=== PATIENT | male | born 1985 | race Caucasian/White ===

== ENCOUNTER 2019-09-05 18:45 | Inpatient (IN) ==
[2019-09-05 19:48] LABS: Hematocrit 48.4 % (37.5-50.1); Hemoglobin 17.3 g/dL (12.9-16.9); Mean Corpuscular HGB Conc 35.7 g/dL (31.6-35.5); Mean Corpuscular Hemoglobin 29.1 pg (28.0-33.3); Mean Corpuscular Volume 81.5 fL (83.0-100.0); Mean Platelet Volume 9.5 fL (9.4-12.4); Platelet Count 246 K/mcL (140-400); Red Blood Count 5.94 M/mcL (4.19-5.50); Red Cell Distribution Width 13.7 % (11.5-14.5); White Blood Count 15.4 K/mcL (4.3-11.1)
[2019-09-05 19:55] LABS: INR 1.2; Prothrombin Time 13.6 Seconds (9.4-12.1)
[2019-09-05 20:08] LABS: BUN/Creatinine Ratio 15 (6-26); Blood Urea Nitrogen 12 mg/dL (6-20); Calcium 10.3 mg/dL (8.6-10.3); Carbon Dioxide 28 mEq/L (23-29); Chloride 102 mEq/L (98-107); Ethanol < 10 mg/dL (Less than 10); Glucose 105 mg/dL (70-105); Osmolality,Calculated 290 (280-300); Potassium 3.4 mEq/L (3.5-5.1); Sodium 140 mEq/L (136-145); eGFR For African Americans > 60 (> 60); eGFR For Non-African Americans > 60 (> 60)
[2019-09-05 20:09] LABS: Troponin I < 0.03 ng/mL (< 0.04)
[2019-09-05 21:41] LABS: Creatine Kinase 20 Units/L (30-223)
[2019-09-06] MEDS ORDERED: Naloxone 0.4 MG/ML INJ IVP PRN ×2 (01:03→07:02)
[2019-09-06] MEDS ORDERED: Melatonin 3 MG TABLET PO PRN (01:09)
[2019-09-06] MEDS ORDERED: *HR* LORazepam 2 MG/ML VIAL ONE ×2 (02:02→02:10)
[2019-09-06 02:25] LABS: ABG Base Excess -15 mEq/L (-2 to 3); ABG HCO3 10 mEq/L (21-27); ABG Oxygen Saturation 92 % (95-98); ABG PCO2 22 mmHg (35-45); ABG PH 7.25 pH Units (7.32-7.45); ABG PO2 71 mmHg (85-104); ABG TCO2 10 mEq/L (20-26)
[2019-09-06] MEDS ORDERED: Dexmedetomidine HCl 400 MCG/100 ML MLS IVC SCH (02:30)
[2019-09-06 02:37] LABS: Bilirubin,Urine Negative (Negative); Blood,Urine Trace (Negative); Clarity,Urine Clear (Clear); Color,Urine Yellow (Yellow); Glucose,Urine (UA) Normal (Normal); Ketones,Urine Negative (Negative); Leukocyte Esterase,Urine Negative (Negative); Nitrite,Urine Negative (Negative); PH,Urine 5.5 pH Units (5.0-8.0); Protein,Urine 30 mg/dL (Neg-Trace); Specific Gravity,Urine 1.024 (1.010-1.025); Urobilinogen,Urine Normal (Normal)
[2019-09-06 02:39] LABS: Amphetamine Screen,Urine Negative ng/mL (Cutoff=1000); Barbiturate Screen,Urine Negative ng/mL (Cutoff=200); Benzodiazepines Screen,Urine Negative ng/mL (Cutoff=200); Cannabinoid Screen,Urine Negative ng/mL (Cutoff = 50); Cocaine Screen,Urine Negative ng/mL (Cutoff= 300); Opiate Screen,Urine Negative ng/mL (Cutoff=300); Phencyclidine Screen,Urine Negative ng/mL (Cutoff=25)
[2019-09-06 02:40] LABS: Bacteria,Urine None Seen per hpf (None-Few); Hyaline Casts,Urine None Seen per lpf (None-Few); Squamous Epithelial Cell,Urine Moderate per lpf (None-Few)
[2019-09-06] MEDS ORDERED: Ketorolac 30 MG/ML VIAL IVP ONE (04:04)
[2019-09-06] MEDS ORDERED: Acetaminophen 325 MG TABLET PO PRN ×2 (06:33→07:02)
[2019-09-06 06:53] LABS: Basophils # 0.1 K/mcL (0.0-0.2); Basophils % 0.5 %; Eosinophils # 0.1 K/mcL (0.0-0.6); Eosinophils % 0.5 %; Hematocrit 41.1 % (37.5-50.1); Hemoglobin 14.7 g/dL (12.9-16.9); Immature Granulocytes % 2.3 % (0-4); Immature Platelets 2.8 % (1.1-6.1); Lymphocytes # 1.7 K/mcL (0.6-4.6); Lymphocytes % 8.1 %; Mean Corpuscular HGB Conc 35.8 g/dL (31.6-35.5); Mean Corpuscular Volume 81.1 fL (83.0-100.0); Mean Platelet Volume 9.7 fL (9.4-12.4); Monocytes # 1.9 K/mcL (0.0-1.3); Monocytes % 8.9 %; Platelet Count 215 K/mcL (140-400); Red Blood Count 5.07 M/mcL (4.19-5.50); Red Cell Distribution Width 13.8 % (11.5-14.5); Segmented Neutrophils % 79.7 %; White Blood Count 21.4 K/mcL (4.3-11.1)
[2019-09-06 07:01] LABS: Alanine Aminotransferase 43 Units/L (7-52); Albumin 4.2 g/dL (3.5-5.7); Albumin/Globulin Ratio 1.6 (1.1-2.2); Alkaline Phosphatase 54 Units/L (34-104); Aspartate Amino Transferase 27 Units/L (13-39); BUN/Creatinine Ratio 15 (6-26); Bilirubin,Total 1.8 mg/dL (0.3-1.0); Blood Urea Nitrogen 17 mg/dL (6-20); Calcium 9.2 mg/dL (8.6-10.3); Carbon Dioxide 25 mEq/L (23-29); Chloride 101 mEq/L (98-107); Globulin 2.6 g/dL (2.4-3.5); Glucose 124 mg/dL (70-105); Magnesium 2.9 mg/dL (1.6-2.6); Osmolality,Calculated 287 (280-300); Phosphorous 3.5 mg/dL (2.7-4.5); Potassium 3.1 mEq/L (3.5-5.1); Sodium 137 mEq/L (136-145); Total Protein 6.8 g/dL (6.4-8.9); eGFR For African Americans > 60 (> 60); eGFR For Non-African Americans > 60 (> 60)
[2019-09-06] MEDS: Dexmedetomidine HCl 400 MCG/100 ML MLS IVC SCH (07:17)
[2019-09-06] MEDS ORDERED: Ondansetron ODT 4 MG TAB.RAPDIS SL SCH (08:00)
[2019-09-06] MEDS: levETIRAcetam 250 MG TABLET PO SCH ×2 (09:38→21:30)
[2019-09-06] MEDS: Acyclovir 700 MG in D5% in Water 100 ML IVPB SCH ×2 (09:38→15:08)
[2019-09-06] MEDS: cefTRIAXone 2,000 MG in Water for inj. (sterile) 20 ML IVP SCH ×2 (09:38→21:29)
[2019-09-06 11:50] LABS: Adenovirus Not Detected (Not Detect); Coronavirus 229E Not Detected (Not Detect); Coronavirus HKU1 Not Detected (Not Detect); Coronavirus NL63 Not Detected (Not Detect); Coronavirus OC43 Not Detected (Not Detect); Human Metapneumovirus Not Detected (Not Detect); Human Rhinovirus/Enterovirus Not Detected (Not Detect); Influenza A Subtype 2009 H1 Not Detected (Not Detect)
[2019-09-06 11:51] LABS: Bordetella Pertussis Not Detected (Not Detect); Chlamydophila pneumoniae Not Detected (Not Detect); Influenza B Not Detected (Not Detect); Mycoplasma pneumoniae Not Detected (Not Detect); Parainfluenza Virus 1 Not Detected (Not Detect); Parainfluenza Virus 2 Not Detected (Not Detect); Parainfluenza Virus 3 Not Detected (Not Detect); Parainfluenza Virus 4 Not Detected (Not Detect); Respiratory Syncytial Virus Not Detected (Not Detect)
[2019-09-06] MEDS ORDERED: *HR* Heparin 5,000 UNIT/ML VIAL SQ SCH ×2 (18:00)
[2019-09-06] MEDS ORDERED: *HR* HYDROcodone/Acet 5/325 mg TABLET PO ONE (20:55)
[2019-09-07] MEDS: Acyclovir 700 MG in D5% in Water 100 ML IVPB SCH (01:34)
[2019-09-07 01:47] LABS: Basophils # 0.1 K/mcL (0.0-0.2); Basophils % 0.4 %; Eosinophils # 0.2 K/mcL (0.0-0.6); Hematocrit 42.1 % (37.5-50.1); Hemoglobin 14.8 g/dL (12.9-16.9); Immature Granulocytes % 1.3 % (0-4); Lymphocytes # 1.4 K/mcL (0.6-4.6); Lymphocytes % 7.6 %; Mean Corpuscular HGB Conc 35.2 g/dL (31.6-35.5); Mean Corpuscular Hemoglobin 28.8 pg (28.0-33.3); Mean Corpuscular Volume 81.9 fL (83.0-100.0); Mean Platelet Volume 9.7 fL (9.4-12.4); Monocytes # 1.7 K/mcL (0.0-1.3); Monocytes % 8.9 %; Neutrophils # 15.1 K/mcL (1.6-8.9); Platelet Count 203 K/mcL (140-400); Red Blood Count 5.14 M/mcL (4.19-5.50); Red Cell Distribution Width 13.8 % (11.5-14.5); Segmented Neutrophils % 80.8 %; White Blood Count 18.6 K/mcL (4.3-11.1)
[2019-09-07 02:14] LABS: Calcium 9.5 mg/dL (8.6-10.3); Magnesium 2.6 mg/dL (1.6-2.6); Potassium 3.3 mEq/L (3.5-5.1)
[2019-09-07] MEDS ORDERED: 0.9 % Sodium Chloride 500 ML IVC ONE (05:02)
[2019-09-07] MEDS ORDERED: 0.9 % Sodium Chloride 1,000 ML IVC SCH ×2 (05:15→08:30)
[2019-09-07] MEDS: Dexmedetomidine HCl 400 MCG/100 ML MLS IVC SCH (05:49)
[2019-09-07] MEDS: levETIRAcetam 250 MG TABLET PO SCH ×2 (08:53→21:07)
[2019-09-07] MEDS: *HR* HYDROcodone/Acet 5/325 mg TABLET PO PRN ×2 (10:29→17:45)
[2019-09-07 11:39] VITALS: BP 144/90
[2019-09-07] MEDS ORDERED: Aminoglycoside Consult 1 EACH MC ONE (21:14)
== END 2019-09-07 21:15 | disposition left against medical advice (07) | DRG 53 ==
LOC: EMEROOARM 18:45 → 3BNU 18:45 → ICNU 09-06 04:11 → 2NNU 09-06 07:35 → SUATTDRO 09-07 10:20
PROVIDERS: ADMIT Family Medicine; ATTEND Internal Medicine